=== PATIENT | female | born 1990 | race Hispanic/Latino ===

== ENCOUNTER 2016-07-05 11:11 | Emergency (ER) | payer OTHER ==
[~2016-07-05 11:11] MED LIST: Sodium Chloride 0.9% 1,000 ML BAG ONE
[2016-07-05] MEDS ORDERED: Ondansetron ODT 4 MG TAB ONE (12:07)
[2016-07-05] MEDS ORDERED: Mag-Al Plus 1200 MG/1200 MG/120 MG/30 ML UDCUP ONE (12:08)
[2016-07-05] MEDS ORDERED: Lidocaine Viscous Sol 2% 15 ml UD Cup ONE (12:08)
[2016-07-05 12:10] LABS: Bilirubin Negative (Negative); Blood, Urine Moderate (Negative); Glucose, Urine (Dipstick) Negative (Negative); Leukocyte Trace (Negative); Nitrite Negative (Negative); Protein, Urine (Dipstick) Negative (Neg-Trace); Urobilinogen 0.2 mg/dL (0.2-1.0)
[2016-07-05 12:13] LABS: Clarity Hazy (Clear); Pregnancy Test - Urine (BHCG) NEGATIVE (NEGATIVE); Pregu Control Bar Appear? YES (CONTROL BAR)
[2016-07-05 12:14] LABS: Bacteria/HPF 3+ HPF (None Seen); Renal Epithelial 0-3 HPF (0-3); Transitional Epithelial 0-3 HPF (0-3); Yeast-All Forms Rare HPF (None Seen)
[2016-07-05 12:25] LABS: ALT (SGPT) 25 U/L (0-55); AST (SGOT) 17 U/L (5-34); Albumin 4.2 g/dL (3.5-5.0); Alkaline Phosphatase 82 U/L (40-150); Anion Gap 15 mmol/L (10-20); BUN (Urea Nitrogen) 16 mg/dL (7.0-18.7); Bilirubin, Total 1.1 mg/dL (0.2-1.2); Calc. Creatinine Clearance 0 mL/min (70-130); Calcium 9.3 mg/dL (7.8-10.44); Carbon Dioxide 24 mmol/L (22-29); Chloride 105 mmol/L (98-107); Estimated GFR-MDRD Greater than 90; Globulin 2.9 g/dL (2.4-3.5); Glucose 106 mg/dL (70-105); Lipase 21 U/L (8-78); Protein, Total 7.1 g/dL (6.0-8.3); Sodium 140 mmol/L (136-145)
[2016-07-05 12:50] LABS: #Lymphocytes 0.6 thou/uL (1.20-3.40); #Monocytes 0.4 thou/uL (0.11-0.59); #Neutrophils 6.5 thou/uL (1.40-6.50); %Basophils 0.5 % (0.0-1.0); %Eosinophils 0.3 % (0.0-10.0); %Lymphocytes 7.4 % (21.0-51.0); %Monocytes 4.7 % (0.0-10.0); %Neutrophils 87.1 % (42.0-75.0); Hemoglobin 13.7 g/dL (12.0-16.0); Mean Corpuscular Hemoglobin 26.6 pg (27.0-31.0); Mean Corpuscular Volume 80.6 fl (81.0-99.0); Platelet Count 148 thou/uL (130-400); RBC Distribution Width 12.5 % (11.5-14.5); Red Blood Cell (RBC) Count 5.15 mill/uL (4.20-5.40); White Blood Cell (WBC) Count 7.5 thou/uL (4.8-10.8)
[2016-07-05 12:53] LABS: Blood, Urine Moderate (Negative); Glucose, Urine (Dipstick) Negative (Negative); Leukocyte Negative (Negative); Nitrite Negative (Negative); Protein, Urine (Dipstick) 30 mg/dL (Neg-Trace)
[2016-07-05 12:54] LABS: Bilirubin Small (Negative); Clarity Hazy (Clear); Icto Negative (Negative); Renal Epithelial 0-3 HPF (0-3); Specific Gravity, Urine 1.025 (1.005-1.030); Squamous Epithelial 0-3 HPF (0-3); Transitional Epithelial 0-3 HPF (0-3)
[2016-07-05 12:55] LABS: Bacteria/HPF 3+ HPF (None Seen)
--- NOTE | 2016-07-05 13:43 | CT ---
EXAM: ABDOMEN CT WITHOUT CONTRAST: HISTORY: Midline back pain. COMPARISON: None. TECHNIQUE: An abdomen and pelvic CT are performed without IV or oral contrast essentially utilizing a renal sto ne protocol. Coronal reformatted images are submitted for interpretation. FINDINGS: ABDOMEN CT: Lung bases are clear. Heart size is normal. No pericardial effusion. Visualized aorta has a dread l caliber. No periaortic fat stranding. Symmetric attenuation of the psoas muscles. Gallbladder is surgically absent. Limited evaluation of the solid organs due to lack of Iv contrast. No solid organ abnormality. No mesenteric mass, lymphadenopathy, free air, or free fluid. Limited evaluation of the alimentary canal due to lack of oral contrast. No evidence of bowel obstr uction. Ileocecal junction is normal. Normal-caliber appendix. Colon is grossly unremarkable. Bilaterally, no hydronephrosis, nephrolithiasis, or perinephric fat stranding. The visualized left and right ureter have a normal caliber. No hydroureter or periureteral fat stranding. No calcifica tion along the expected course of either ureter. PELVIC CT: Uterus and adnexa are unremarkable. No mass, lymphadenopathy, free air, or significant free fluid. Urinary bladder is unremarkable. No osteoblastic or osteolytic lesions. IMPRESSION: No acute abnormality in the abdomen or pelvis. POS: [facility]
== END 2016-07-05 14:15 | disposition home or self-care (01) ==
LOC: MADERS 11:11
DX: N39.0 Urinary tract infection, site not specified (principal); R10.13 Epigastric pain
CPT/HCPCS: 36415; 74176; 80053; 81003; 81015; 81025; 83690; 85025; 87086; 96360; 96361; A4353; J7050; Q0162